=== PATIENT | male | born 1990 | race Two or more races ===

== ENCOUNTER 2024-06-24 09:22 | Outpatient (RCR) | payer MEDICAID, SELFPAY | END 2024-06-24 23:59 | disposition home or self-care (01) | LOC: SCTC 09:22 | PROVIDERS: PCP Family Medicine; Referring Provider Family Medicine; Visit Provider Nurse Practitioner Family | DX: I26.99 Other pulmonary embolism without acute cor pulmonale (principal); Z79.01 Long term (current) use of anticoagulants | CPT/HCPCS: 99212; 99213; G0463 ==

== ENCOUNTER 2024-07-29 11:19 | Outpatient (RCR) | payer MEDICAID, SELFPAY | END 2024-08-24 23:59 | disposition home or self-care (01) | LOC: SCTC 11:19 | PROVIDERS: PCP Family Medicine; Referring Provider Family Medicine; Visit Provider Nurse Practitioner Family | DX: Z09 Encounter for follow-up examination after completed treatment for conditions other than malignant neoplasm (principal); Z86.711 Personal history of pulmonary embolism; Z79.01 Long term (current) use of anticoagulants | CPT/HCPCS: 99212; G0463 ==

== ENCOUNTER 2024-09-04 10:18 | Outpatient (RCR) | payer MEDICAID, SELFPAY | END 2024-09-23 23:59 | disposition home or self-care (01) | LOC: SCTC 10:18 | PROVIDERS: PCP Family Medicine; Referring Provider Family Medicine; Visit Provider Nurse Practitioner Family | DX: Z09 Encounter for follow-up examination after completed treatment for conditions other than malignant neoplasm (principal); Z86.711 Personal history of pulmonary embolism; Z79.01 Long term (current) use of anticoagulants | CPT/HCPCS: 99213; G0463 ==

== ENCOUNTER 2024-11-06 09:31 | Outpatient (RCR) | payer MEDICAID, SELFPAY | END 2024-11-24 23:59 | disposition home or self-care (01) | LOC: SCTC 09:31 | PROVIDERS: PCP Family Medicine; Referring Provider Family Medicine; Visit Provider Nurse Practitioner Family | DX: Z09 Encounter for follow-up examination after completed treatment for conditions other than malignant neoplasm (principal); Z86.711 Personal history of pulmonary embolism; Z79.01 Long term (current) use of anticoagulants; R74.8 Abnormal levels of other serum enzymes | CPT/HCPCS: 99212; G0463 ==

== ENCOUNTER → 2024-12-30 | Outpatient (CLI) | payer MEDICAID, SELFPAY ==
--- NOTE | 2024-12-30 14:30 | XR_ITS ---
Examination: Abdomen sonogram, complete Date and time of exam: December 30, 2024, 1436 hours INDICATIONS: Elevated liver function tests on laboratory examination October 2024. Technique: Multiple real-time grayscale transabdominal sonographic images of the abdomen have been obtained. Findings: Negative for gallstones Gallbladder wall 0.38 cm with possible edema Common bile duct 0.3 cm Pancreatic head 2.1 cm Aorta not enlarged Liver 13.2 cm right lobe liver cyst 8mm Normal hepatopedal portal venous flow Patent IVC Right kidney 8.8 cm cortex 1.9 cm Left kidney 9.5 cm cortex 1.9 cm Moderate irregular renal scarring Spleen 11.3 cm IMPRESSION: Borderline thickening gallbladder wall with possible edema Consider HIDA scan follow-up to exclude cholecystitis Moderate bilateral renal parenchymal scar formation
== END | disposition home or self-care (01) ==
LOC: CDIM 14:24
PROVIDERS: PCP Family Medicine; Referring Provider Internal Medicine Hematology & Oncology; Visit Provider Internal Medicine Hematology & Oncology
DX: K82.8 Other specified diseases of gallbladder (principal); N28.89 Other specified disorders of kidney and ureter
CPT/HCPCS: 76700

== ENCOUNTER 2025-02-05 14:29 | Outpatient (RCR) | payer MEDICAID, SELFPAY ==
--- NOTE | 2025-02-06 06:43 | CTCFLWUP_ITS ---
Patient: ABHILASH HERNDON : 1990 Page 2 of 2 FOLLOW UP NOTE DATE OF SERVICE: 02/05/2025 NAME: ABHILASH HERNDON ACCOUNT: [id number] : 1990 AGE: 34 INTERVAL HISTORY: 34-year-old male was diagnosed with pulmonary embolism in November 2023. Patient denies any changes from last visit. Patient at that time was under a lot of stress secondary to his father having t subdural hemorrhage and was taken to [place]. Patient states that at that he was having RSV infection but he drove all the way from [facility] to [place] to transfer his dad. Patient got sick was having chest pain but took self-medication until he started having worsening symptoms and at that time was diagnosed in the emergency room with cor pulmonale. Patient has completed 12 months of Eliquis and here for follow-up ONCOLOGY HISTORY:?[facility] Hx? DIAGNOSIS: Provoked pulmonary embolism secondary to traveling history in November 2023. Patient traveled to [facility] from [place] 3 times in the month of November prior to chest pain and shortness of breath Chest pain and shortness of breath started December 21, 2024. PE diagnosed 12/25/2024 s/p thrombolytic therapy by IR during hospitalization Eliquis started 12/2024 Cor pulmonale likely from PE Factor V Leiden factor negative DATE OF DIAGNOSIS: 12/25/2024 Benign PE provoked STAGE/TNM: TREATMENT HISTORY: Care?Plan Start?Date Cycle Day Intent HISTORY OF PRESENT ILLNESS: 34-year-old male with diagnosis of pulmonary embolism in November 2023. Patient had respiratory syncytial virus infection as well as prolonged traveling at the time of diagnosis. 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 Eliquis - 5 mg 1 tab 1 tab po twice a day 2. multivitamin - 1 Capsule Daily?Palabra Meds? Medications Last Reconciled by Edilia Mills MD on 02/05/2025 ALLERGIES: No Known Drug Allergies REVIEW OF SYSTEMS: A complete 14-point review of systems was performed and is negative except as noted in interval history. PHYSICAL EXAMINATION:?Lauren PE? VITAL SIGNS: Temperature?98.3, B/P?124/82, Oxygen?Saturation?96% Weight?130?lbs PAIN: 0 - No pain ECOG Performance Status: 0 - Asymptomatic and fully active GENERAL APPEARANCE: Appears well, in no apparent distress, appropriately interactive. HEENT: Normocephalic, no temporal wasting, normal conjunctiva, no scleral icterus, normal hearing, lips without lesions, neck normal range of motion. CARDIOVASCULAR: Normal heart sounds. PULMONARY: Normal respiratory effort, no respiratory distress or use of accessory muscles, speaking in full sentences, no tachypnea. EXTREMITIES: No pedal edema or cyanosis. SKIN: Normal skin appearance. NEUROLOGIC: Alert and oriented x4. PSHYCHIATRIC: Appropriate affect, mood normal, behavior normal, intact thought and speech. LABORATORY DATA: I have personally reviewed and interpreted each of the patient?s relevant lab tests, abnormal findings are below: Date ASSESSMENT/PLAN:?Lauren Lowry Assessment/Plan? Abhilash Herndon is a male patient with a history of provoked pulmonary embolism secondary to travel in November 2023 presenting for follow-up and management of anticoagulation therapy. Provoked pulmonary embolism/ Lung nodule/fatty Liver assessment: Patient has a history of provoked pulmonary embolism secondary to travel in November 2023. Completed 1 year of treatment with Eliquis Clinically and imaging coronado her PE resolved Protein C S ordered Anticardiolipin antibodies antiphospholipid antibodies Patient also noted to have fatty liver Need to follow-up on the lung nodule which was detected incidentally and found to be 1.5 cm in the lung There has never been imaging to monitor the lung nodule Need imaging and biopsy referral to have persistent or increased size of lung nodule RTC after the imaging results as well as labs Diet and exercise advised and use of healthier fats for fatty liver ORDERS: Order # Description [id number] CT Scan + Chest + With W/O Contrast [id number] Lupus anticoagulant panel [id number] Follow Up 3 Months RETURN TO CLINIC: I reviewed the diagnosis, prognosis, and recommended treatment/procedure options with the patient (and/or their legal passenger representative), including the potential benefits, risks, side effects and alternative therapies. We also discussed the option of no treatment and the possibility of clinical trial participation, if applicable. All questions were addressed, and they demonstrated understanding. They provided informed consent to proceed with the proposed plan of care. BILLING AND COMPLIANCE: I reviewed external records from providers outside my specialty as summarized above. I spent a total of 50 minutes on this patient?s care on the day of their visit excluding time spent related to any billed procedures. This time includes time spent with the patient as well as time spent documenting in the medical record, reviewing patients records and tests, obtaining history, placing orders, communicating with other healthcare professionals, counseling the patient, family or caregiver, and/or care coordination for the diagnoses above. Electronically Signed by: Kamlesh Lowry MD T: 6:40 AM CC: PCP: Darnell Dodd Referring: Darnell Dodd This document was completed utilizing speech recognition software. Grammatical errors, random word insertions, pronoun errors, and incomplete sentences are an occasional consequence of this system due to software limitations, ambient noise, and hardware issues. Any formal questions or concerns about the content, text or information contained within the body of this dictation should be directly addressed to the provider for clarification.
== END 2025-02-23 23:59 | disposition home or self-care (01) ==
LOC: SCTC 14:29
PROVIDERS: PCP Family Medicine; Referring Provider Family Medicine; Visit Provider Internal Medicine Hematology & Oncology
DX: Z09 Encounter for follow-up examination after completed treatment for conditions other than malignant neoplasm (principal); Z86.711 Personal history of pulmonary embolism; Z92.29 Personal history of other drug therapy; K76.0 Fatty (change of) liver, not elsewhere classified; R91.1 Solitary pulmonary nodule; Z71.3 Dietary counseling and surveillance; Z71.82 Exercise counseling
CPT/HCPCS: 99212; G0463

== ENCOUNTER → 2025-03-12 | Outpatient (CLI) | payer MEDICAID, SELFPAY ==
--- NOTE | 2025-03-12 13:00 | XR_ITS ---
Examination: CT chest with intravenous contrast CT chest without intravenous contrast 2-D reconstructions Date and time of exam: March 12, 2025, 1408 hours INDICATIONS: History pulmonary nodules CTDI:vol (mGy) 24.3 DLP: (mGycm) 800 Technique: Multiple axial sections of the thorax have been obtained. 3 mm slice thickness, from the hemidiaphragms to above the apices of the lungs. Mediastinal and lung density settings have been obtained. Intravenous contrast administered 60 cc [id number]-370. Noncontrast images have also been obtained. 2-D sagittal coronal images obtained. Low dose protocols were performed. One or more of the following dose reduction techniques were used; automated exposure control, adjustment of the mA and/or KV according to patient size, use of iterative reconstruction technique. Findings: No thoracic aortic aneurysm dilatation or dissection Pulmonary artery segments are not enlarged No paratracheal tracheobronchial or bronchopulmonary adenopathy No pneumonia, pulmonary edema, pleural disease or pulmonary nodules Diffuse fatty infiltration throughout the liver, 4 mm right lobe liver cyst Spleen not enlarged No pancreatic or adrenal mass Kidneys partially visualized no hydronephrosis Adequate bone density IMPRESSION: No mediastinal lymphadenopathy No pneumonia, pulmonary edema, pleural disease or pulmonary nodules
== END | disposition home or self-care (01) ==
LOC: SCAT 12:16
PROVIDERS: PCP Family Medicine; Referring Provider Internal Medicine Hematology & Oncology; Visit Provider Internal Medicine Hematology & Oncology
DX: I26.09 Other pulmonary embolism with acute cor pulmonale (principal)
CPT/HCPCS: 71270; A4649; Q9967